=== PATIENT | female | born 1950 | race Caucasian/White ===

== ENCOUNTER → 2017-03-03 13:41 | Outpatient (CLI) | payer MEDICARE | END | disposition home or self-care (01) | LOC: D.MAMMO 11:30 | DX: Z12.31 Encounter for screening mammogram for malignant neoplasm of breast (principal) ==

== ENCOUNTER 2018-06-29 13:54 | Emergency (ER) | payer MEDICARE, OTHER ==
[~2018-06-29] VITALS: Ht 165.1 cm; Wt 72.6 kg
[2018-06-29 14:06] VITALS: Ht 165.1 cm; Wt 72.6 kg
[2018-06-29] MEDS ORDERED: ZOCOR10 MG PO (14:08)
[2018-06-29] MEDS ORDERED: SYNTHROID25 MCG PO (14:08)
[2018-06-29] MEDS ORDERED: BAYER CHEWABLE81 MG PO (14:08)
[2018-06-29] MEDS ORDERED: FLAGYL500 MG PO (17:06)
[2018-06-29 17:25] VITALS: BP 134/80
== END 2018-06-29 17:25 | disposition home or self-care (01) ==
LOC: D.ER 13:54
DX: K57.92 Diverticulitis of intestine, part unspecified, without perforation or abscess without bleeding (principal)

== ENCOUNTER 2018-11-15 16:54 | Inpatient (IN) | payer MEDICARE, OTHER ==
[~2018-11-15] VITALS: Ht 165.1 cm; Wt 72.6 kg
[~2018-11-15 16:54] MED LIST: BAYER CHEWABLE81 MG PO; FLAGYL500 MG PO; SYNTHROID25 MCG PO; ZOCOR10 MG PO
[2018-11-15] MEDS ORDERED: [UNRECOGNIZED DRUG - OTHER] (17:06)
[2018-11-15 17:20] LABS: BASOPHILS 0.6 % (0-2); EOSINOPHILS 3.6 % (0-7); HEMATOCRIT 36.7 % (36.0-48.0); HEMOGLOBIN 12.7 g/dL (12-16); IMMATURE GRANULOCYTES 0.3 % (0-5); LYMPHOCYTES 26.6 % (15-50); MCH 31.6 pg (26.0-34.0); MCHC 34.6 g/dL (31.0-37.0); MCV 91.3 fL (80.0-100.0); MEAN PLATELET VOLUME 10.1 fL (7.4-10.4); MONOCYTES 9.4 % (2-11); NEUTROPHILS 59.5 % (40-80); PLATELET COUNT 178 10x3/uL (130-400); RBC 4.02 10x6/uL (4.00-5.40); RDW 13.2 % (11.5-14.5)
[2018-11-15 17:35] LABS: ALBUMIN 4.3 g/dL (3.4-5.0); ALKALINE PHOSPHATASE 50 U/L (46-116); ALT (SGPT) 31 U/L (10-68); BILIRUBIN - TOTAL 0.49 mg/dL (0.2-1.3); CALC OSMOLALITY 283 mosm/kg (275-300); CALCIUM 9.6 mg/dL (8.5-10.1); CARBON DIOXIDE 25.6 mmol/L (21.0-32.0); CHLORIDE - SERUM 105 mmol/L (98-107); CREATININE - SERUM 1.2 mg/dL (0.6-1.3); GLUCOSE 98 mg/dL (74-106); POTASSIUM - SERUM 3.8 mmol/L (3.5-5.1); PROTEIN - SERUM 7.3 g/dL (6.4-8.2); SODIUM 141 mmol/L (136-145); UREA NITROGEN 21 mg/dL (7-18); eGFR NON AFRICAN AMERICAN 47 mL/min (90-120)
[2018-11-15 17:37] LABS: AMYLASE - SERUM 47 U/L (25-115); LIPASE 126 U/L (73-393)
[2018-11-15 17:44] LABS: TROPONIN-I < 0.017 ng/mL (0.000-0.060)
[2018-11-15 18:29] LABS: APPEARANCE CLEAR (CLEAR); BILIRUBIN NEGATIVE (NEGATIVE); COLOR DK YELLOW (YELLOW); GLUCOSE NEGATIVE (NEGATIVE); KETONE MODERATE mg/dL (NEGATIVE); PROTEIN TRACE mg/dL (NEGATIVE); SPECIFIC GRAVITY 1.025 (1.005-1.020); UROBILINOGEN NORMAL (NORMAL)
[2018-11-15 18:30] LABS: NITRITE NEGATIVE (NEGATIVE); WHITE CELLS - URINE 0-5 /hpf (0-5)
[2018-11-15 18:31] LABS: BACTERIA FEW /hpf (NONE SEEN); EPITHELIAL CELLS OCC /hpf (0-5)
--- NOTE | 2018-11-15 18:57 | NUR ---
REPORT GIVEN TO TABITHA TINSLEY, UTILIZING SBAR FORMAT AT BEDSIDE.
[2018-11-15 18:58] VITALS: BP 102/56
--- NOTE | 2018-11-15 20:00 | NUR ---
RECEIVED REPORT FROM TABITHA TINSLEY FROM ER. RECEIVED TO UNIT VIA W/C. PATIENT IS AAOX4. NO S/SX OF DISTRESS NOTED. RR EVEN AND UNLABORED ON ROOM AIR. PATIENT HAS 20G IV TO RT AC NS INFUSING BY GRAVITY. PATIENT DENIES NEEDS AT THIS TIME. AT BEDSIDE. CL IN REACH, BED LOCKED AND LOWERED. WILL CTM.
--- NOTE | 2018-11-15 22:20 | NUR ---
PATIENT C/O PAIN. REQUESTED DILAUDID AND ZOFRAN. MEDS ADMINISTERED PER ORDERS. PATIENT DENIES FURTHER NEEDS. CL IN REACH. BED LOCKED AND LOWERED. WILL CTM.
[2018-11-15 23:46] VITALS: BP 93/51
[2018-11-15 23:49] LABS: CKMB 0.7 U/L (0.0-3.6); CREATINE KINASE 59 UL (21-215); TROPONIN-I < 0.017 ng/mL (0.000-0.060)
[2018-11-16 00:45] VITALS: BP 142/67; BMI 26.6
[2018-11-16 04:00] VITALS: BP 105/56
--- NOTE | 2018-11-16 04:10 | NUR ---
PATIENT C/O PAIN, ASKED FOR PRN PAIN MED AND ZOFRAN. MED ADMINISTERED PER ORDER. PATIENT DENIES FURTHER NEEDS AT THIS TIME. CL IN REACH, BED LOCKED AND LOWERED. WILL CTM.
[2018-11-16 06:35] LABS: ALBUMIN 3.3 g/dL (3.4-5.0); ALKALINE PHOSPHATASE 46 U/L (46-116); ALT (SGPT) 31 U/L (10-68); BILIRUBIN - TOTAL 0.44 mg/dL (0.2-1.3); CALC OSMOLALITY 281 mosm/kg (275-300); CALCIUM 8.4 mg/dL (8.5-10.1); CARBON DIOXIDE 25.3 mmol/L (21.0-32.0); CHLORIDE - SERUM 108 mmol/L (98-107); CKMB 0.7 U/L (0.0-3.6); CREATINE KINASE 64 UL (21-215); GLUCOSE 106 mg/dL (74-106); MAGNESIUM - SERUM 1.9 mg/dL (1.8-2.4); POTASSIUM - SERUM 3.8 mmol/L (3.5-5.1); PROTEIN - SERUM 6.1 g/dL (6.4-8.2); SODIUM 140 mmol/L (136-145); TROPONIN-I < 0.017 ng/mL (0.000-0.060); UREA NITROGEN 20 mg/dL (7-18); eGFR NON AFRICAN AMERICAN 58 mL/min (90-120)
--- NOTE | 2018-11-16 07:15 | NUR ---
AM ROUNDS- PT RESTING COMFORTABLY IN BED, EASILY AROUSES TO VOICE. RT AC INFUSING NS AT 100CC/HR. RESP EVEN AND UNLABORED ON RA. PT REQUESTED A CUP OF ICE WATER, WILL PROVIDE PT WITH CUP OF ICE WATER. PT DENIES ANY OTHER NEEDS AT THIS TIME. CALL LIGHT IN REACH, NAD NOTED, WILL CONTINUE TO MONITOR.
[2018-11-16 07:28] VITALS: BP 100/49
[2018-11-16 07:48] LABS: BASOPHILS 0.1 % (0-2); EOSINOPHILS 3.7 % (0-7); HEMATOCRIT 34.4 % (36.0-48.0); HEMOGLOBIN 11.5 g/dL (12-16); IMMATURE GRANULOCYTES 0.1 % (0-5); LYMPHOCYTES 29.5 % (15-50); MCH 30.9 pg (26.0-34.0); MCHC 33.4 g/dL (31.0-37.0); MCV 92.5 fL (80.0-100.0); MEAN PLATELET VOLUME 10.5 fL (7.4-10.4); MONOCYTES 10.7 % (2-11); NEUTROPHILS 55.9 % (40-80); PLATELET COUNT 168 10x3/uL (130-400); RBC 3.72 10x6/uL (4.00-5.40); RDW 13.3 % (11.5-14.5); WBC 7.3 10x3/uL (4.8-10.8)
--- NOTE | 2018-11-16 08:31 | NUR ---
AM MEDS GIVEN AT THIS TIME. ALSO GAVE 4MG OF ZOFRAN AND 1MG OF DILAUDID FOR PAIN LEVEL OF 9/10. PT DENIES ANY OTHER NEEDS AT THIS TIME. CALL LIGHT IN REACH,NAD NOTED, WILL CONTINUE TO MONITOR.
--- NOTE | 2018-11-16 09:00 | NUR ---
PER INFECTIOUS CONTROL PT NEEDS TO REMAIN IN ENTERIC ISOLATION UNTIL STOOL STUDIES COME BACK, SINCE PT IS STILL HAVING DIARRHEA.
[2018-11-16 09:15] VITALS: Ht 165.1 cm; Wt 72.6 kg
[2018-11-16 12:00] LABS: CKMB 3.4 U/L (0.0-3.6); CREATINE KINASE 160 UL (21-215); TROPONIN-I < 0.017 ng/mL (0.000-0.060)
--- NOTE | 2018-11-16 12:10 | NUR ---
GAVE 4MG OF ZOFRAN FOR NAUSEA, PT REFUSED LUNCH TRAY, STATED THAT SHE WAS NOT HUNGRY. PT DENIES ANY NEEDS AT THIS TIME. CALL LIGHT IN REACH, NAD NOTED, WILL CONTINUE TO MONITOR.
[2018-11-16 13:19] VITALS: BP 115/58
--- NOTE | 2018-11-16 16:51 | NUR ---
4MG OF ZOFRAN GIVEN, ALSO GAVE 1MG OF DILAUDID FOR PAIN LEVEL OF 4/10. PT DENIES ANY OTHER NEEDS AT THIS TIME, CALL LIGHT IN REACH NAD NOTED WILL CONTINUE TO MONITOR,
[2018-11-16 17:32] VITALS: BP 124/59
--- NOTE | 2018-11-16 19:15 | NUR ---
EVENING ROUNDS MADE, WILL CONTINUE POC. PATIENT IS AAOX4, UP AD JOSE. RR EVEN AND UNLABORED. PATIENT C/O PAIN AND NAUSEA BUT DOES NOT WANT PAIN MEDS BECAUSE SHE SAID THEY MAKE HER NAUSEA WORSE. PATIENT HAS IV TO RT AC, PATENT, INFUSING NS@ 100ML/HR. DRSG IS C/D/I. PATIENT DENIES FURTHER NEEDS AT THIS TIME. CL IN REACH, BED LOCKED AND LOWERED. ENTERIC ISOLATION PRECAUTIONS MAINTAINED. WILL CTM.
[2018-11-16 20:00] VITALS: BP 127/62
--- NOTE | 2018-11-16 21:08 | NUR ---
PATIENT IS REFUSING PO HS MEDS DUE TO BEING NAUSEATED. ZOFRAN ADMINISTERED PER ORDERS. WILL CTM.
--- NOTE | 2018-11-16 21:20 | NUR ---
PATIENT VOMITED 300ML IN EMESIS BAG, PATIENT STATED CLEAR IN COLOR. ICE PACK REQUESTED AND GIVEN. WILL CTM.
[2018-11-17] VITALS: BP 136/56
--- NOTE | 2018-11-17 03:30 | NUR ---
PATIENT WANTED SHOWER DUE TO NOT BEING ABLE TO SLEEP. PROVIDED SUPPLIES FOR SHOWER AND GOWN. LINENS CHANGED. PATIENT DENIES FURTHER NEEDS AT THIS TIME. CL IN REACH, BED LOCKED AND LOWERED. WILL CTM.
[2018-11-17 04:00] VITALS: BP 134/63
--- NOTE | 2018-11-17 06:03 | NUR ---
I have reviewed this patient and I concur with the Shift Assessment completed by the Licensed Practical Nurse today this shift.
[2018-11-17 07:23] LABS: BASOPHILS 0.5 % (0-2); HEMATOCRIT 33.4 % (36.0-48.0); HEMOGLOBIN 11.4 g/dL (12-16); IMMATURE GRANULOCYTES 0.2 % (0-5); LYMPHOCYTES 28.6 % (15-50); MCH 30.8 pg (26.0-34.0); MCHC 34.1 g/dL (31.0-37.0); MEAN PLATELET VOLUME 10.4 fL (7.4-10.4); MONOCYTES 8.6 % (2-11); NEUTROPHILS 59.1 % (40-80); PLATELET COUNT 165 10x3/uL (130-400); RDW 12.8 % (11.5-14.5); WBC 6.4 10x3/uL (4.8-10.8)
[2018-11-17 07:33] LABS: MCV 90.3 fL (80.0-100.0)
[2018-11-17 07:41] LABS: CALC OSMOLALITY 283 mosm/kg (275-300); CARBON DIOXIDE 26.1 mmol/L (21.0-32.0); CHLORIDE - SERUM 110 mmol/L (98-107); CREATININE - SERUM 0.8 mg/dL (0.6-1.3); GLUCOSE 90 mg/dL (74-106); MAGNESIUM - SERUM 1.8 mg/dL (1.8-2.4); PHOSPHOROUS 2.5 mg/dL (2.5-4.9); POTASSIUM - SERUM 3.5 mmol/L (3.5-5.1); SODIUM 143 mmol/L (136-145); UREA NITROGEN 11 mg/dL (7-18); eGFR NON AFRICAN AMERICAN 75 mL/min (90-120)
--- NOTE | 2018-11-17 07:48 | NUR ---
REPORT RECIEVED. PT LYING SEMI FOWLERS. RR EVEN AND UNLABORED. NO DISTRESS NOTED. R AC PIV IS INFUSING NS @100. PT CURRENTLY ON ENTERIC PRECAUTION. BED LOCKED AND IN LOWEST POSITION. CALL LIGHT WITHIN REACH. WILL CTM
[2018-11-17 08:01] VITALS: BP 140/73
[2018-11-17] MEDS ORDERED: BENTYL 20 MG TA20 MG PO (10:39)
[2018-11-17] MEDS ORDERED: ZOFRAN ODT4 MG/UDTAB PO (10:40)
[2018-11-17 11:11] VITALS: BP 142/65
--- NOTE | 2018-11-17 12:35 | NUR ---
I have reviewed this patient and I concur with the Shift Assessment completed by the Licensed Practical Nurse today this shift.
--- NOTE | 2018-11-17 13:28 | MORECARE ---
CASE MANAGEMENT DISCHARGE SUMMARY PATIENT: GENI MORA UNIT: [id number] ADM DATE: 11/16/18 AGE: 68 : 50 SEX: F ROOM/BED: D.1201 AUTHOR: JORGE,DOC PHYSICIAN: REFERRING PHYSICIAN: NAI BROOKS MD DATE OF SERVICE: 11/17/18 Discharge Plan Patient Name: GENI MORA Facility: [facility]:[place] : 1950 Planned Disposition: Home Anticipated Discharge Date: 11/17/18 Discharge Date: Expected LOS: 1 Initial Reviewer: [id number] Initial Review Date: 11/15/2018 Generated: 11/17/18 2:27 pm Comments DCP- Discharge Planning Updated by [email or web address]: Jodie Contreras on 11/17/18 12:[address] Patient Name: GENI MORA Admission Status: ER Accout number: [id number] Admission Date: 11-16-2018 : 1950 Admission Diagnosis: Attending: CECILIA, Current LOS: 1 Anticipated DC Date: 11-17-2018 Planned Disposition: Home Primary Insurance: MEDICARE A & B Discharge Planning Comments: DC PLAN: Return home with sig other. ANTICIPATED DC NEEDS: Denied known dc needs. CM met with patient and her sig other, Rajan to complete initial dc planning assessment. CM educated patient on the CM role and verbal consent given by patient to complete assessment. CM verified patient's address, phone number, and emergency contact phone numbers. Patient lives at home independently with Rajan. At discharge patient plans to return home and feels this is a safe discharge. CM discussed availability of home health, rehab services, and medical equipment. Patient denied known discharge needs at this time. Patient reports Rajan will transport him/her home at time of discharge. CM will continue to follow and will assist as needed with dc plans/needs. Eye Surgeon: Jodie Contreras RN, [facility] DCPIA - Discharge Planning Initial Assessment Updated by [id number]: Jodie Contreras on 11/17/18 1:23 pm * Is the patient Alert and Oriented? Yes * How many steps to enter\exit or inside your home? * PCP DR. Damon * Pharmacy [facility] * Preadmission Environment Home with Family * ADLs Independent * Equipment None * List name and contact numbers for known caregivers / representatives who currently or will assist patient after discharge: Rajan [place] [facility] - [phone] * Verbal permission to speak to the caregivers and representatives has been obtained from the patient. Yes * Community resources currently utilized None * Additional services required to return to the preadmission environment? No * Can the patient safely return to the preadmission environment? Yes * Has this patient been hospitalized within the prior 30 days at any hospital? No Patient Name: GENI MORA Page [phone] at 1328 All edits/amendments must be made on the electronic document DICTATION DATE: 11/17/18 1327 AIR CONDITIONING EQUIPMENT MECHANIC: DIMPLE 11/17/18 1327 RPT#: [id number] DC DATE: STATUS: ADM IN [facility] [address] [place] [address] END OF REPORT
--- NOTE | 2018-11-17 13:32 | NUR ---
DC PAPERWORK GONE OVER AND SIGNED WITH PT. ALL QUESTIONS ANSWERED. PIV REMOVED. CATH TIP FULLY INTACT. PT WHEELED TO FRONT ENTRANCE WITH .
--- NOTE | 2018-11-17 13:58 | MORECARE ---
CASE MANAGEMENT DISCHARGE SUMMARY PATIENT: GENI MORA UNIT: [id number] ADM DATE: 11/16/18 AGE: 68 : 50 SEX: F ROOM/BED: D.1201 AUTHOR: JORGE,DOC PHYSICIAN: REFERRING PHYSICIAN: NAI BROOKS MD DATE OF SERVICE: 11/17/18 Discharge Plan Patient Name: GENI MORA Facility: [facility]:[place] : 1950 Planned Disposition: Home Anticipated Discharge Date: 11/17/18 Discharge Date: 11/17/2018 Expected LOS: 1 Initial Reviewer: [email or web address] Initial Review Date: 11/15/2018 Generated: 11/17/18 2:58 pm Comments DCP- Discharge Planning Updated by [email or web address]: Jodie Contreras on 11/17/18 12:[address] Patient Name: GENI MORA Admission Status: ER Accout number: [id number] Admission Date: 11-16-2018 : 1950 Admission Diagnosis: Attending: CECILIA, Current LOS: 1 Anticipated DC Date: 11-17-2018 Planned Disposition: Home Primary Insurance: MEDICARE A & B Discharge Planning Comments: DC PLAN: Return home with sig other. ANTICIPATED DC NEEDS: Denied known dc needs. CM met with patient and her sig other, Rajan to complete initial dc planning assessment. CM educated patient on the CM role and verbal consent given by patient to complete assessment. CM verified patient's address, phone number, and emergency contact phone numbers. Patient lives at home independently with Rajan. At discharge patient plans to return home and feels this is a safe discharge. CM discussed availability of home health, rehab services, and medical equipment. Patient denied known discharge needs at this time. Patient reports Rajan will transport him/her home at time of discharge. CM will continue to follow and will assist as needed with dc plans/needs. Outsole Splicer: Jodie Contreras RN, [facility] DCPIA - Discharge Planning Initial Assessment Updated by [email or web address]: Jodie Contreras on 11/17/18 1:23 pm * Is the patient Alert and Oriented? Yes * How many steps to enter\exit or inside your home? * PCP DR. Damon * Pharmacy [facility] * Preadmission Environment Home with Family * ADLs Independent * Equipment None * List name and contact numbers for known caregivers / representatives who currently or will assist patient after discharge: Rajan [facility] [place] [facility] - [phone] * Verbal permission to speak to the caregivers and representatives has been obtained from the patient. Yes * Community resources currently utilized None * Additional services required to return to the preadmission environment? No * Can the patient safely return to the preadmission environment? Yes * Has this patient been hospitalized within the prior 30 days at any hospital? No Last DP export: 11/17/18 12:28 p Patient Name: GENI MORA Page [phone] at 1358 All edits/amendments must be made on the electronic document DICTATION DATE: 11/17/18 1358 MOBILE HOME MECHANIC: DIMPLE 11/17/18 1358 RPT#: [id number] DC DATE:11/17/18 STATUS: DIS IN [facility] [address] [place] [address] END OF REPORT
[2018-11-21 20:06] LABS: OVA + PARASITE EXAM Final report (())
== END 2018-11-17 13:34 | disposition home or self-care (01) | DRG 641 ==
LOC: D.ER 16:54 → D.M3 19:13 → OBSVTIME 19:13 → D.M3 11-16 12:04
PROVIDERS: Family Medicine; ADMIT Family Medicine; ATTEND Family Medicine
DX: E86.0 Dehydration (principal); R19.7 Diarrhea, unspecified; E78.5 Hyperlipidemia, unspecified; E03.9 Hypothyroidism, unspecified; K57.90 Diverticulosis of intestine, part unspecified, without perforation or abscess without bleeding; I95.1 Orthostatic hypotension

== ENCOUNTER 2019-08-11 22:02 | Inpatient (IN) | payer MEDICARE, OTHER ==
[~2019-08-11] VITALS: Ht 165.1 cm; Wt 75.3 kg
[~2019-08-11 22:02] MED LIST changes: +BENTYL 20 MG TA20 MG PO; +ZOFRAN ODT4 MG/UDTAB PO; +[UNRECOGNIZED DRUG - OTHER]
[2019-08-11 23:00] VITALS: BP 120/68
[2019-08-11 23:04] LABS: BASOPHILS 0.1 % (0-2); EOSINOPHILS 1.2 % (0-7); HEMATOCRIT 44.4 % (36.0-48.0); HEMOGLOBIN 14.7 g/dL (12-16); IMMATURE GRANULOCYTES 0.1 % (0-5); LYMPHOCYTES 22.3 % (15-50); MCHC 33.1 g/dL (31.0-37.0); MCV 93.7 fL (80.0-100.0); MEAN PLATELET VOLUME 10.4 fL (7.4-10.4); MONOCYTES 12.6 % (2-11); NEUTROPHILS 63.7 % (40-80); PLATELET COUNT 227 10x3/uL (130-400); RBC 4.74 10x6/uL (4.00-5.40); WBC 7.5 10x3/uL (4.8-10.8)
[2019-08-11 23:24] LABS: ALBUMIN 4.4 g/dL (3.4-5.0); ALKALINE PHOSPHATASE 63 U/L (30-120); ALT (SGPT) 31 U/L (10-68); AMYLASE - SERUM 40 U/L (25-115); BILIRUBIN - TOTAL 0.95 mg/dL (0.2-1.3); CALC OSMOLALITY 279 mosm/kg (275-300); CALCIUM 9.7 mg/dL (8.5-10.1); CARBON DIOXIDE 24.2 mmol/L (21.0-32.0); CHLORIDE - SERUM 101 mmol/L (98-107); CKMB 0.2 U/L (0.0-3.6); CREATINE KINASE 49 UL (21-215); CREATININE - SERUM 1.1 mg/dL (0.6-1.3); GLUCOSE 146 mg/dL (74-106); LIPASE 88 U/L (73-393); POTASSIUM - SERUM 3.8 mmol/L (3.5-5.1); PROTEIN - SERUM 7.9 g/dL (6.4-8.2); SODIUM 137 mmol/L (136-145); TROPONIN-I < 0.017 ng/mL (0.000-0.060); UREA NITROGEN 21 mg/dL (7-18); eGFR NON AFRICAN AMERICAN 52 mL/min (90-120)
[2019-08-12] VITALS (7 sets, daily range): BP systolic 110–150; BP diastolic 54–80; Ht 165.1 cm; Wt 75.3 kg
--- NOTE | 2019-08-12 00:30 | NUR ---
PT ASSISTED TO RESTROOM AND PROVIDED A CLEAN BREIF
[2019-08-12 00:49] LABS: BACTERIA MODERATE /hpf (NEGATIVE); BILIRUBIN NEGATIVE (NEGATIVE); EPITHELIAL CELLS 0-5 /hpf (0-5); GLUCOSE 50 mg/dL (NEGATIVE); KETONE LARGE mg/dL (NEGATIVE); NITRITE NEGATIVE (NEGATIVE); RED CELLS - URINE 0-5 /hpf (0-5); SPECIFIC GRAVITY 1.015 (1.005-1.020); UROBILINOGEN NORMAL (NORMAL)
--- NOTE | 2019-08-12 01:24 | NUR ---
PT ASSISTED TO REST ROOM AND PROVIDED WITH A CLEAN BREIF
--- NOTE | 2019-08-12 03:57 | NUR ---
PT ARRIVED VIA STRETCHER AT 0320 WITH DX OF ABD PAIN, N/V AND PUI COVID. MORPHINE 2MG, ZOFRAN 4MG SIVP GIVEN ON ARRIVAL. PT VOMITED 400CC OF GREEN COLORED LIQUID SHORTLY AFTER ZOFRAN ADMINISTRATION. IV TO RAC WITH NS AT 125CC/HR. IV PATENT. VSS. ABD WITH HYPOACTIVE BS NOTED. URRUTIA. PALPABLE PERIPHERAL PULSES. NON-GRID SOCKS PLACED ON FEET. ADMISSION ASSESSMENT, HISTORY AND HOME MED LIST COMPLETED. SR UP X2, CALL LIGHT WITHIN REACH.
--- NOTE | 2019-08-12 06:19 | NUR ---
PT RESTING WITH EYES CLOSED. RESP EVEN AND REGULAR. NEEDS MET; WILL CONTINUE TO MONITOR.
--- NOTE | 2019-08-12 07:00 | NUR ---
RECEIVED REPORT. ASSUMED CARE OF PATIENT. PATIENT REMAINS IN DROPLET ISOLATION FOR PUI-COVID. WAITING RESULTS.
--- NOTE | 2019-08-12 09:42 | NUR ---
PATIENT TOLERATING BOLUS WELL. NO DISTRESS.
--- NOTE | 2019-08-12 09:46 | NUR ---
MEDICATED FOR PAIN AND NAUSEA AT THIS TIME. NO DISTRESS.
--- NOTE | 2019-08-12 13:56 | NUR ---
STOOL SUBMITTED TO LAB FOR CDT
--- NOTE | 2019-08-12 17:03 | NUR ---
MEDICATED FOR PAIN AND NAUSEA VIA IV. ALSO PROVIDED PATIENT WITH ICEPACK FOR HER NECK. NO DISTRESS. IV FLUIDS INFUSING ORDERED.
--- NOTE | 2019-08-12 17:35 | NUR ---
LAB SUBMITTED AT THIS TIME.
--- NOTE | 2019-08-12 20:00 | NUR ---
REPORT RECEIVED. BEDSIDE SHIFT REPORT COMPLETE. PT TRANSFERED TO NEW ROOM 2135. RR EVEN AND UNLABORED. NO S/SX OF DISTRESS OBSERVED. STILL C/O ABD PAIN THAT SHE THINKS IS R/T GAS. PT STILL HAVING MULTIPLE LOOSE STOOLS. NO FURTHER NEEDS EXPRESSED. CALL LIGHT IN REACH. FLUIDS ENCOURAGED. WILL CPOC.
[2019-08-13] VITALS: BP 119/55
[2019-08-13 04:00] VITALS: BP 121/58
[2019-08-13 06:27] LABS: BASOPHILS 0.2 % (0-2); IMMATURE GRANULOCYTES 0.5 % (0-5); LYMPHOCYTES 38.3 % (15-50); MCH 30.4 pg (26.0-34.0); MCHC 32.7 g/dL (31.0-37.0); MEAN PLATELET VOLUME 10.1 fL (7.4-10.4); MONOCYTES 13.3 % (2-11); NEUTROPHILS 43.7 % (40-80); RDW 13.2 % (11.5-14.5)
[2019-08-13 06:43] LABS: BILIRUBIN - TOTAL 0.37 mg/dL (0.2-1.3); CALCIUM 7.9 mg/dL (8.5-10.1); CARBON DIOXIDE 23.6 mmol/L (21.0-32.0); CREATININE - SERUM 0.9 mg/dL (0.6-1.3); MAGNESIUM - SERUM 1.6 mg/dL (1.8-2.4)
[2019-08-13 06:45] LABS: ALBUMIN 2.9 g/dL (3.4-5.0); ANION GAP 11.4 mmol/L (8-16); PROTEIN - SERUM 5.5 g/dL (6.4-8.2)
[2019-08-13 06:48] LABS: HEMATOCRIT 33.3 % (36.0-48.0); HEMOGLOBIN 10.9 g/dL (12-16); PLATELET COUNT 166 10x3/uL (130-400); RBC 3.58 10x6/uL (4.00-5.40); WBC 4.3 10x3/uL (4.8-10.8)
--- NOTE | 2019-08-13 07:37 | NUR ---
PT RESTING COMFORTABLY, LYING ON LEFT SIDE. BREATHS EVEN, REGUALR AND UNLABORED. NO SIGNS OR SYMPTOMS OF ACUTE DISTRESS NOTED AT THIS TIME. CL INREACH, SRX2
[2019-08-13 08:45] VITALS: BP 130/58
--- NOTE | 2019-08-13 09:23 | NUR ---
PT AWAKE AND ORIENTED, LYING N BED RESTING, STATES SHE'S UNABLE TO SLEEP WELL FOR ANY LONG LENGTH OF TIME. STILL COMPLAINING OF N/D, SHE STATES THAT IT'S NOT DOING ANY BETTER AT THIS TIME. REQUESTS TO BE LEFT OT REST FOR A WHILE. WILL ACCOMIDATE. NO COMPLAINTS OR CONCERNS AT THIS TIME. CL IN REACH, SRX2.
[2019-08-13 12:16] VITALS: BP 144/68
--- NOTE | 2019-08-13 13:28 | NUR ---
PT AWAKE AND ORIENTED, TOLERATED FULL LIQUIDS WELL. STATE SHE STIL FEELS UNWELL. SHE IS CONCERNED ABOUT BLOOD IN HER STOOL. CL IN REACH, SRX2
--- NOTE | 2019-08-13 13:38 | NUR ---
I have reviewed this patient and I concur with the Shift Assessment completed by the Licensed Practical Nurse today this shift.
[2019-08-13 14:00] VITALS: BP 137/71
--- NOTE | 2019-08-13 17:57 | NUR ---
PT AWAKE AND ORIENTED, LYING IN BED. TOLERATED FULL LIQUID SUPPER WITHOUT DIFFIUCLTY OF VOMMITING. PT STATES THAT SHE IS FEELIN BETTER AND WOULD LIKE A SHOWER. WILL ACCOMIDATE SOON POSSIBLE. CL IN REACH, SRX2.
--- NOTE | 2019-08-13 18:29 | NUR ---
PT WAS UP FOR A SHOWER. SHE STATED THAT SHE WAS STANDING UP BRIGHT RED BLOOD GUSHED FROM HER RECTUM, THEN IT HAPPENED WHEN SHE WENT TO THE RESTROOM, PAGED NATE DENIS AND ORDERED A STAT CBC.
--- NOTE | 2019-08-13 18:53 | NUR ---
PTS STOOLS CAME BACK NEGATIVE FOR BLOOD. WILL VAMSI REORDER AFTER SPEAKING WITH TELEVISION INSTALLER HELPER D/T TO THE FACT I VISUALIZED BLOOD REMANENTS ON PTS RECTUME. WILL CN.T TO MONITOR. CL IN REACH, SRX2. SPOKE TO DR. GIFFORD HE STATED TO ORDER A TYPE AND CROSS AND MONITOR.
[2019-08-13 19:03] LABS: BASOPHILS 0.5 % (0-2); EOSINOPHILS 3.2 % (0-7); HEMATOCRIT 32.4 % (36.0-48.0); HEMOGLOBIN 10.6 g/dL (12-16); IMMATURE GRANULOCYTES 0.5 % (0-5); MCH 30.1 pg (26.0-34.0); MCHC 32.7 g/dL (31.0-37.0); MEAN PLATELET VOLUME 9.5 fL (7.4-10.4); MONOCYTES 12.6 % (2-11); NEUTROPHILS 47.2 % (40-80); PLATELET COUNT 157 10x3/uL (130-400); RBC 3.52 10x6/uL (4.00-5.40); RDW 13.1 % (11.5-14.5); WBC 4.4 10x3/uL (4.8-10.8)
[2019-08-13 20:00] VITALS: BP 138/75
[2019-08-14] VITALS: BP 133/67
[2019-08-14 04:00] VITALS: BP 154/76
[2019-08-14 05:06] LABS: BASOPHILS 0.2 % (0-2); EOSINOPHILS 2.9 % (0-7); HEMOGLOBIN 10.5 g/dL (12-16); IMMATURE GRANULOCYTES 0.2 % (0-5); LYMPHOCYTES 39.9 % (15-50); MCH 29.9 pg (26.0-34.0); MCHC 32.8 g/dL (31.0-37.0); MCV 91.2 fL (80.0-100.0); MEAN PLATELET VOLUME 9.6 fL (7.4-10.4); NEUTROPHILS 47.8 % (40-80); PLATELET COUNT 168 10x3/uL (130-400); RBC 3.51 10x6/uL (4.00-5.40); RDW 13.1 % (11.5-14.5); WBC 4.1 10x3/uL (4.8-10.8)
[2019-08-14 05:43] LABS: ALBUMIN 2.9 g/dL (3.4-5.0); ALKALINE PHOSPHATASE 38 U/L (30-120); ALT (SGPT) 19 U/L (10-68); CALC OSMOLALITY 277 mosm/kg (275-300); CARBON DIOXIDE 22.4 mmol/L (21.0-32.0); CHLORIDE - SERUM 108 mmol/L (98-107); CREATININE - SERUM 0.8 mg/dL (0.6-1.3); GLUCOSE 107 mg/dL (74-106); MAGNESIUM - SERUM 1.6 mg/dL (1.8-2.4); PROTEIN - SERUM 5.3 g/dL (6.4-8.2); SODIUM 141 mmol/L (136-145); eGFR NON AFRICAN AMERICAN 75 mL/min (90-120)
[2019-08-14 05:46] LABS: UREA NITROGEN 4 mg/dL (7-18)
--- NOTE | 2019-08-14 07:14 | NUR ---
PT AWAKE AND ORIENTED, LYING IN BED. STILL COMPLAINING OF BRIGHT RED BLOOD COMING OUT WTIH STOOLS. H/H IS STABLE. PT STATES SHE WOULD PREFER TO GO HOME TODAY IF AT ALL POSSIBLE. RAJAN MCDANIEL, SRX2.
[2019-08-14 09:16] VITALS: BP 128/62
--- NOTE | 2019-08-14 09:38 | NUR ---
PT AWAKE AND ORIETNED, LYING IN BED. DR. GIFFORD HAS DISHCARGED PT, WILL INFORM HOSPITALIST SOFTWARE VERIFICATION ENGINEER. PT STATES SHE IS FEELING BETTER AND THRILLED TO GO HOME. CL INR EACH, SRX2.
--- NOTE | 2019-08-14 09:43 | MORECARE ---
CASE MANAGEMENT DISCHARGE SUMMARY PATIENT: GENI MORA UNIT: [id number] ADM DATE: 08/12/19 AGE: 68 : 50 SEX: F ROOM/BED: D.2136 AUTHOR: NORMA PATEL PHYSICIAN: REFERRING PHYSICIAN: BRENDA [place] DO DATE OF SERVICE: 08/14/19 Discharge Plan Patient Name: GENI MORA Facility: [facility]:[place] : 1950 Planned Disposition: Home Anticipated Discharge Date: Discharge Date: Expected LOS: Initial Reviewer: [email or web address] Initial Review Date: 08/14/2019 Generated: 08/14/19 10:43 am Comments DCP- Discharge Planning Updated by [id number]: Elly Reaves on 08/14/19 8:[address] Patient Name: GENI MORA Admission Status: ER Accout number: [id number] Admission Date: 08-12-2019 : 1950 Admission Diagnosis: Attending: BRENDA [place] Current LOS: 2 Anticipated DC Date: Planned Disposition: Home Primary Insurance: MEDICARE A & B Discharge Planning Comments: CM MET WITH PATIENT AFTER OBTAINING VERBAL CONSENT. PATIENT PLANS TO DC TO HOME TODAY. DENIES NEED FOR REHAB, HH OR EQUIPMENT. IMM SIGNED. Contact Manager: Elly Reaves DCPIA - Discharge Planning Initial Assessment Updated by [email or web address]: Elly Reaves on 08/14/19 9:39 am * Is the patient Alert and Oriented? Yes * PCP MULLINEX * Pharmacy [facility] * Preadmission Environment Home with Family * ADLs Independent * Equipment None * Additional services required to return to the preadmission environment? No * Can the patient safely return to the preadmission environment? Yes * Has this patient been hospitalized within the prior 30 days at any hospital? No Coverage Notice Reviewer: [id number] - Elly Reaves Notice Issued Date-Time: 08/14/2019 9:39 Notice Type: IM Discharge Notice Notice Delivered To: Patient Relationship to Patient: Slice Cutting Machine Operator Name: Delivery Method: HAND - Hand Delivered Nancy Days: Prior Verbal Notification: Recipient Understood Notice: Yes Recipient Signature: Yes Med Rec Note Co-signed by Attending: Coverage Notice Comment: Patient Name: GENI MORA Page [phone] at 0943 All edits/amendments must be made on the electronic document DICTATION DATE: 08/14/19942 ALLERGIST IMMUNOLOGIST: DIMPLE 08/14/19942 RPT#: [id number] DC DATE: STATUS: ADM IN [facility] [address] [place] [address] END OF REPORT
[2019-08-14] MEDS ORDERED: FLAGYL500 MG PO (10:02)
[2019-08-14] MEDS ORDERED: LEVAQUIN750 MG PO (10:02)
--- NOTE | 2019-08-14 11:35 | NUR ---
PT DISCHARGE PAPEROWRK GIVEN, SHE STATES HER RIDE IS ON THE WAY, THAN SHE'LL CHANGE CLOTHES WHEN HE ARRIVES (OLD CLOTHES WERE SOILED) AND THEN GO OUT.
--- NOTE | 2019-08-14 11:58 | NUR ---
PT ESCORTED OUT VIA WHEELCHAIR TO [facility].
--- NOTE | 2019-08-15 09:24 | MORECARE ---
CASE MANAGEMENT DISCHARGE SUMMARY PATIENT: GENI MORA UNIT: [id number] ADM DATE: 08/12/19 AGE: 69 : 50 SEX: F ROOM/BED: D.2136 AUTHOR: JORGEDOC PHYSICIAN: REFERRING PHYSICIAN: BRENDA [place] DO DATE OF SERVICE: 08/15/19 Discharge Plan Patient Name: GENI MORA Facility: [facility]:[place] : 1950 Planned Disposition: Home Anticipated Discharge Date: Discharge Date: 08/14/2019 Expected LOS: Initial Reviewer: [email or web address] Initial Review Date: 08/14/2019 Generated: 08/15/19 10:24 am Comments DCP- Discharge Planning Updated by [email or web address]: Elly Reaves on 08/14/19 8:[address] Patient Name: GENI MORA Admission Status: ER Accout number: [id number] Admission Date: 08-12-2019 : 1950 Admission Diagnosis: Attending: BRENDA [place] Current LOS: 2 Anticipated DC Date: Planned Disposition: Home Primary Insurance: MEDICARE A & B Discharge Planning Comments: CM MET WITH PATIENT AFTER OBTAINING VERBAL CONSENT. PATIENT PLANS TO DC TO HOME TODAY. DENIES NEED FOR REHAB, HH OR EQUIPMENT. IMM SIGNED. Engagement Engineer: Elly Reaves DCPIA - Discharge Planning Initial Assessment Updated by [email or web address]: Elly Reaves on 08/14/19 9:39 am * Is the patient Alert and Oriented? Yes * PCP MULLINEX * Pharmacy [facility] * Preadmission Environment Home with Family * ADLs Independent * Equipment None * Additional services required to return to the preadmission environment? No * Can the patient safely return to the preadmission environment? Yes * Has this patient been hospitalized within the prior 30 days at any hospital? No Coverage Notice Reviewer: [id number] - Elly Reaves Notice Issued Date-Time: 08/14/2019 9:39 Notice Type: IM Discharge Notice Notice Delivered To: Patient Relationship to Patient: Job Cost Estimator Name: Delivery Method: HAND - Hand Delivered Nancy Days: Prior Verbal Notification: Recipient Understood Notice: Yes Recipient Signature: Yes Med Rec Note Co-signed by Attending: Coverage Notice Comment: Last DP export: 08/14/19 8:43 a Patient Name: GENI MORA Page [phone] at 0924 All edits/amendments must be made on the electronic document DICTATION DATE: 08/15/19923 SPRING UP SUPERVISOR: DIMPLE 08/15/19923 RPT#: [id number] DC DATE:08/14/19 STATUS: DIS IN [facility] [address] [place] [address] END OF REPORT
== END 2019-08-14 11:59 | disposition home or self-care (01) | DRG 389 ==
LOC: D.ER 22:02 → D.MS 08-12 01:45 → D.M2 08-12 01:45
PROVIDERS: Family Medicine; ADMIT Family Medicine; ATTEND Family Medicine
DX: K56.609 Unspecified intestinal obstruction, unspecified as to partial versus complete obstruction (principal); N39.0 Urinary tract infection, site not specified; A09 Infectious gastroenteritis and colitis, unspecified; E86.0 Dehydration; A08.4 Viral intestinal infection, unspecified; K21.9 Gastro-esophageal reflux disease without esophagitis; E03.9 Hypothyroidism, unspecified; E78.5 Hyperlipidemia, unspecified

== ENCOUNTER → 2020-07-22 09:31 | Outpatient (CLI) | payer MEDICARE, OTHER ==
[2019-08-12 10:05] VITALS: BMI 27.6
[~2020-07-22 09:31] MED LIST changes: +LEVAQUIN750 MG PO
--- NOTE | 2020-07-24 08:06 | ST ---
PATIENT:GENI MORA MEDICAL RECORD: [id number] SEX: F LOCATION:[facility] ORDER #: ADMISSION DATE: 07/22/20 AGE OF PATIENT: 69 REFERRING PHYSICIAN: INTERPRETING PHYSICIAN: ADRI QUIJANO MD DATE OF SERVICE: 07/22/2020 NUCLEAR STRESS TEST Nuclear stress test performed. FINDINGS: GATED: Gated imaging was performed, this shows normal wall motion, normal wall thickening, calculated EF 86%. SPECT IMAGING: SPECT imaging was performed. 1. Short axis view: Short axis view shows good uptake along the anterior wall, lateral wall, and inferior wall. 2. Horizontal axis: Horizontal axis confirms good uptake along the anterior wall and inferior wall. 3. Vertical axis: Vertical axis shows good uptake along the lateral wall and septum. FINAL IMPRESSION: 1. Normal gated, normal wall motion, normal EF 86%. 2. Normal SPECT imaging. This scan is felt a low risk for any ongoing myocardial ischemia or previous myocardial infarction. LV function remains normal. TRANSINT:[id number] Voice Confirmation ID: [id number] DOCUMENT ID: [id number] ADRI QUIJANO MD at 0806 CC: [id number] DICTATION DATE: 07/22/20 1636 PHERESIS SPECIALIST: 07/23/20 0536 [facility] CLI 07/22/[address] [address]
== END | disposition home or self-care (01) ==
LOC: D.HCCARDIO 09:31
PROVIDERS: ATTEND Internal Medicine Interventional Cardiology
DX: R07.9 Chest pain, unspecified (principal)

== ENCOUNTER → 2020-08-23 11:02 | Outpatient (CLI) | payer MEDICARE, OTHER ==
[2019-08-12 10:05] VITALS: BMI 27.6
--- NOTE | 2020-08-24 20:10 | EC ---
PATIENT:GENI MORA DATE OF SERVICE: 08/23/20 SEX: F MEDICAL RECORD: [id number] DATE OF : [birth year] [facility] AGE OF PAT[facility]: 70 ADMISSION DATE: 08/23/20 REFERRING PHYSICIAN: INTERPRETING PHYSICIAN: ADRI QUIJANO MD ECHOCARDIOGRAM REPORT ECHO CHARGES 4 ECHO COMPLETE Date: 08/23/20 CLINICAL DIAGNOSIS: HEART MURMUR ECHOCARDIOGRAPHIC MEASUREMENTS (adult normal given) AC root (d.<3.7cm) 2.8 cm LV Septum d (<1.2 cm> 1.3 cm Valve Excursion 1.6 cm LV Septum (systole) 1.7 cm Left Atria (s.<4.0cm> 3.4 cm LVPW d(<1.2cm) 1.5 cm RV (d.<2.3cm) 3.0 cm LVPW (sytole) 1.7 cm LV diastole(<5.6CM) 4.1 cm MV E-F(>70mm/sec) cm LV systole 2.6 cm LVOT Diameter 1.6 cm MV exc.(>10mm) 1.8 cm Est.ejection fraction (50-75%) % DOPPLER: LVIT cm/sec A 79.0 cm/sec E 84.0 cm/sec LA cm/sec RVSP 26 mmHg LVOT 104 cm/sec AOP1/2T m/s Asc. Ao 147 cm/sec RVOT 75 cm/sec RA cm/sec PA 112 cm/sec AV Gradient Peak 8.64 mmHg AV Mean 4.45 mmHg AV Area 1.7 cm MV Gradient Peak 4.31 mmHg MV Mean 1.51 mmHg MV Area cm COMMENTS: Food Assembler Kitchen: 2 ROMULO MARIE Manager Instrumentation: 3 Dr. Ferreira TAPE# PACS Pericardial Effusion N DATE OF SERVICE: Adequate 2D, color flow imaging, spectral Doppler, and M-Mode. LVH is present. LV internal dimension is normal. Wall motion is normal. EF is greater than or equal to 55%. Aortic valve is tricuspid. No evidence of stenosis by Doppler interrogation. Left atrium is normal at 3.4 cm. Mitral valve shows no prolapse. Trace MR. Right side is grossly normal. Trace TR. TRANSINT:[id number] Voice Confirmation ID: [id number] DOCUMENT ID: [id number] ECHOCARDIOGRAM REPORT [id number] GENI MORA ADRI QUIJANO MD at 2010 CC: [id number] DICTATION DATE: 08/24/20832 FISH MACHINE FEEDER: 08/24/20 09 [facility] CLI 08/23/20 [place] [id number] [place] [id number]
== END | disposition home or self-care (01) ==
LOC: D.HCCECHO 11:02
PROVIDERS: ATTEND Internal Medicine Interventional Cardiology
DX: R01.1 Cardiac murmur, unspecified (principal)